=== PATIENT | female | born 1960 | race Caucasian/White ===

== ENCOUNTER 2017-10-16 14:52 | Emergency (ER) | payer BC ==
--- NOTE | 2017-10-16 15:42 | ERNOTE ---
Lower Extremity HPI - Narrative Date of Service: 10/16/17 - General Lower Extremities Pain: leg: left Time Seen by Provider: 10/16/17 15:34 Source: patient - Immun/Allergies/Home Medications Immunizations: IMMUNIZATION HX Immunizations Up to Date Yes History of Influenza Vaccine No Hx Pneumococcal Vaccination No Allergies/Adverse Reactions: Allergies Allergy/AdvReac Type Severity Reaction Status Date / Time Penicillins Allergy Verified 10/16/17 15:04 Home Medications: HOME MEDICATIONS Allopurinol [Zyloprim] 300 mg PO DAILY 10/16/17 [Last Taken Unknown] Atorvastatin Calcium 40 mg PO HS 10/16/17 [Last Taken Unknown] Diclofenac Sodium 75 mg PO DAILY 10/16/17 [Last Taken Unknown] Gabapentin 300 mg PO BID 10/16/17 [Last Taken Unknown] Lisinopril/Hydrochlorothiazide [Lisinopril-Hctz 20-25 mg Tab] 1 each PO DAILY [Last Taken Unknown] - History of Present Illness Narrative: patient states that she has had left lower leg pain for the last week and a half. Patient states that it hurts to walk on the left leg. Patient states that she had a hairline fracture in that leg about 3 or 4 years ago and this pain feels similar. Patient denies any injury or trauma to the leg. States she woke up with this. Occurred: last week Location of Incident: home Method of Injury: Reports: no apparent injury Other Injuries: Reports: none Review of Systems - Review of Systems Constitutional: Present: no symptoms reported EYE: Present: no symptoms reported ENT: Present: no symptoms reported Respiratory: Present: no symptoms reported Cardiology: Present: no symptoms reported Gastrointestinal/Abdominal: Present: no symptoms reported Genitourinary: Present: no symptoms reported Musculoskeletal: Present: See HPI Skin: Present: no symptoms reported Neurological: Present: no symptoms reported Endocrine: Present: no symptoms reported - Patient's Past Medical History Patient History - Medical: Arthritis, Other Patient History - Cardiac/Respiratory: Hypertension Patient History - Cancer: No Hx of Cancer Patient History - Surgical Procedures: Appendectomy, Hysterectomy, Orthopedic Patient History - Other: None - Social History Living Situations: significant other Psych History: No pertinent hx Smoking Status: Former smoker Have you smoked in the past 12 months: No Do you dip or chew tobacco: No Alcohol Use: occasionally Drug Use: none - Immunizations Immunizations Up to Date: Yes Hx Pneumococcal Vaccination: No History of Influenza Vaccine: No ED Progress - Vital Signs Patient's Vital Signs:: I have reviewed the patient's vital signs. Vital Signs: Vital Signs 10/16/17 10/16/17 14:58 15:35 Temperature 36.8 C 36.7 C Pulse Rate 78 80 Respiratory 16 16 Rate Blood Pressure 144/86 139/78 O2 Sat by Pulse 100 100 Oximetry - X-Ray X-Ray #1 X-Ray: leg Interpretation: Reviewed by me X-ray Comments: 2 VIEW LEFT TIBIA AND FIBULA. COMPARISON: None Technique: AP and lateral views of tibia and fibula were obtained. Findings: The tibia and fibula are intact and I do not see evidence for fracture or bony abnormality. The ankle joint appears be maintained. There is narrowing of the medial compartment of the right knee with early spurring. There is some calcification the insertion of the Achilles tendon. IMPRESSION: 1. NO ACUTE OSSEOUS ABNORMALITY. Electronically signed by Clifford Burrell M.D.. Clifford Burrell MD - Progress/Reassessment Chief Complaint: Lower Extremity Pain/ Injury Progress:: Improved Plan - Plan Plan: patient to follow up with PCP or ortho. Departure Clinical Impression: Leg pain Qualifiers: Laterality: left Qualified Code(s): M79.605 - Pain in left leg - Departure Disposition: Home self-care Condition: Stable Additional Instructions: Patient given information about orthopedist follow up. Patient encouraged to take [id number] pain medications as directed. Patient should rest for the next 2 days. Patient should return to the emergency room for increased pain and swelling or discoloration. Referrals: Jude Albert MD [Primary Care Provider] -
[2017-10-16 16:26] VITALS: BP 148/71
== END 2017-10-16 16:49 | disposition home or self-care (01) ==
LOC: ER 14:52
DX: M19.90 Unspecified osteoarthritis, unspecified site; M79.662 Pain in left lower leg; I10 Essential (primary) hypertension